=== PATIENT | male | born 1960 | race Caucasian/White ===

== ENCOUNTER 2019-07-20 14:14 | Emergency (ER) | payer BC ==
[2019-07-20] MEDS ORDERED: Sodium Chloride 0.9% 10 ML Syringe FLUSH PRN (14:17)
[2019-07-20] MEDS ORDERED: Aspirin 81 MG Tab.Chew PO ONE (14:22)
--- NOTE | 2019-07-20 14:29 | EDM.PDOC ---
ED HPI GENERAL MEDICAL PROBLEM - General Chief Complaint: Chest Pain Stated Complaint: CHEST PAIN Time Seen by Provider: 07/20/19 14:15 Source of Information: Reports: Patient, Provider, RN History Limitations: Reports: Other (no old records) - History of Present Illness INITIAL COMMENTS - FREE TEXT/NARRATIVE: 58 yo male here with onset this morning about 0530h of chest pain. Pain fairly constant. Taking a deep breath sometimes causes a bit of sharp pain in the chest as well. No recent calf pain. Mild SOB. No diaphoresis. Drives often over 12 hrs per day. No pHx of CAD or PE, does have a hx of AODM and HTN. Was initially seen in the clinic today for this and a had a normal EKG, was subsequently referred to the ER for further evaluation/tx. Onset: Today Onset Date: 07/20/19 Onset Time: 05:30 Duration: Hour(s):, Constant Location: Reports: Chest Quality: Reports: Pressure Severity: Moderate Improves with: Reports: None Worsens with: Reports: None Context: Reports: Other (See HPI) Associated Symptoms: Reports: Chest Pain, Shortness of Breath (mild). Denies: Cough, Diaphoresis, Fever/Chills, Headaches, Nausea/Vomiting, Rash, Seizure, Syncope Treatments [employer] HAND: Reports: Other (see below) (none) Left Middle Chest Pain Score (Numeric/FACES): 7 - Related Data Allergies Allergy/AdvReac Type Severity Reaction Status Date / Time No Known Allergies Allergy Verified 07/20/19 14:22 Home Meds: Home Meds Atenolol 100 mg PO DAILY 07/20/19 [History] Dulaglutide [Trulicity] 1.5 mg SQ WEEKLY 07/20/19 [History] atorvaSTATin [Lipitor] 20 mg PO BEDTIME 07/20/19 [History] glyBURIDE [Glyburide] 10 mg PO BID 07/20/19 [History] metFORMIN [Glucophage] 1,000 mg PO BIDMEALS 07/20/19 [History] oxyCODONE HCl/Acetaminophen [Endocet 10-325 mg Tablet] 1 - 2 each PO Q6H PRN [History] ED ROS GENERAL - Review of Systems Review Of Systems: See Below Constitutional: Reports: No Symptoms HEENT: Reports: No Symptoms Respiratory: Reports: Shortness of Breath (mild). Denies: Wheezing, Pleuritic Chest Pain, Cough, Sputum, Hemoptysis Cardiovascular: Reports: Chest Pain, Dyspnea on Exertion. Denies: Claudication , Edema, Lightheadedness, Orthopnea, Palpitations, PND, Syncope GI/Abdominal: Reports: No Symptoms : Reports: No Symptoms Musculoskeletal: Reports: No Symptoms Skin: Reports: No Symptoms Neurological: Reports: No Symptoms Psychiatric: Reports: No Symptoms ED EXAM, GENERAL - Physical Exam Exam: See Below Exam Limited By: No Limitations General Appearance: Alert, WD/WN, No Apparent Distress Eye Exam: Bilateral Eye: Normal Inspection Ears: Normal External Exam, Normal Canal, Hearing Grossly Normal, Normal TMs Ear Exam: Bilateral Ear: Auricle Normal, Canal Normal, TM normal Nose: Normal Inspection, No Blood Throat/Mouth: Normal Inspection, Normal Lips, Normal Oropharynx, Normal Voice, No Airway Compromise Head: Atraumatic, Normocephalic Neck: Normal Inspection Respiratory/Chest: No Respiratory Distress, Lungs Clear, Normal Breath Sounds, No Accessory Muscle Use, Chest Non-Tender Cardiovascular: Regular Rate, Rhythm, No Edema Peripheral Pulses: 0: Brachial (L) GI/Abdominal: Normal Bowel Sounds, Soft, Non-Tender Back Exam: Normal Inspection. No: CVA Tenderness (R), CVA Tenderness (L) Extremities: Normal Inspection, Normal Range of Motion, Non-Tender, No Pedal Edema Neurological: Alert, Oriented, CN II-XII Intact, Normal Cognition, No Motor/ Sensory Deficits Psychiatric: Normal Affect, Normal Mood Skin Exam: Warm, Dry, Intact, Normal Color, No Rash EKG INTERPRETATION EKG Date: 07/20/19 Time: 13:10 Rhythm: NSR Rate (Beats/Min): 89 [place]: Normal P-Wave: Present QRS: Normal ST-T: Normal QT: Normal Comparison: NA - No Prior EKG EKG Interpretation Comments: PAC's Course - Vital Signs Text/Narrative:: No change in his sx's with ambulation in the ER. Last Recorded V/S: Last Vital Signs Temp 36.2 C 07/20/19 14:30 Pulse 89 07/20/19 14:30 Resp 16 07/20/19 14:30 BP 165/96 H 07/20/19 14:30 Pulse Ox 99 07/20/19 14:30 - Orders/Labs/Meds Orders: Active Orders 24 hr Category Date Time Status Cardiac Monitoring [RC] .As Directed Care 07/20/19 14:17 Active Sodium Chloride 0.9% [Saline Flush] Med 07/20/19 14:17 Active 10 ml FLUSH ASDIRECTED PRN Saline Lock Insert [OM.PC] Routine Oth 07/20/19 14:17 Ordered Medication Orders Sodium Chloride (Saline Flush) 10 ml FLUSH ASDIRECTED PRN PRN Reason: Keep Vein Open Last Admin: 07/20/19 14:33 Dose: 10 ml Labs: Laboratory Tests 07/20/19 07/20/19 07/20/19 Range/Units 14:20 14:20 14:20 WBC 5.7 (4.5-11.0) K/uL RBC 5.39 (4.30-5.90) M/uL Hgb 15.7 H (12.0-15.0) g/dL Hct 45.8 (40.0-54.0) % MCV 85 (80-98) fL MCH 29 (27-31) pg MCHC 34 (32-36) % Plt Count 169 (150-400) K/uL D-Dimer, Quantitative 588 H (0.0-400.0) ng/mL Sodium 138 L (140-148) mmol/L Potassium 3.8 (3.6-5.2) mmol/L Chloride 101 (100-108) mmol/L Carbon Dioxide 29 (21-32) mmol/L Anion Gap 11.8 (5.0-14.0) mmol/L BUN 12 (7-18) mg/dL Creatinine 0.9 (0.8-1.3) mg/dL Est Cr Clr Drug Dosing 98.20 mL/min Estimated GFR (MDRD) > 60 (>60) Glucose 185 H (74-106) mg/dL Calcium 9.3 (8.5-10.1) mg/dL Troponin I < 0.017 (0.000-0.056) ng/mL Meds: Medications Generic Name Dose Route Start Last Admin Trade Name Freq PRN Reason Stop Dose Admin Sodium Chloride 10 ml 07/20/19 14:17 07/20/19 14:33 Saline Flush FLUSH 10 ml ASDIRECTED PRN Administration Keep Vein Open Discontinued Medications Generic Name Dose Route Start Last Admin Trade Name Freq PRN Reason Stop Dose Admin Aspirin 324 mg 07/20/19 14:22 07/20/19 14:32 Aspirin PO 07/20/19 14:23 324 mg ONETIME ONE Administration Lactated Ringer's 1,000 mls @ 1,000 mls/hr 07/20/19 15:06 07/20/19 15:37 Ringers, Lactated IV 07/20/19 16:05 1,000 mls/hr BOLUS ONE Administration Sodium Chloride 100 mls @ 3.5 mls/sec 07/20/19 15:22 07/20/19 15:30 Normal Saline IV 07/20/19 15:23 3.5 mls/sec ONETIME ONE Administration Iopamidol 100 ml 07/20/19 15:30 07/20/19 15:30 Isovue-370 (76%) IV 07/20/19 15:31 100 ml . DIRECTED ELDER Administration Ketorolac Tromethamine 30 mg 07/20/19 16:40 Toradol IVPUSH 07/20/19 16:41 ONETIME ONE Sodium Chloride 10 ml 07/20/19 15:22 07/20/19 15:30 Saline Flush FLUSH 07/20/19 15:23 10 ml ONETIME ONE Administration - Radiology Interpretation Free Text/Narrative:: CTA chest-neg CT Results Date: 07/20/19 Departure - Departure Time of Disposition: 16:55 Disposition: Home, Self-Care 01 Condition: Fair Clinical Impression: Nonspecific chest pain Referrals: Kvng Martinez MD [Primary Care Provider] - Forms: ED Department Discharge Additional Instructions: Take ibuprofen 400 mg every 6 hrs with food starting after 11 pm tonight. Recheck with your doctor if sx's persist. Return if worse. - My Orders Last 24 Hours: My Active Orders 07/20/19 14:17 Cardiac Monitoring [RC] .As Directed Sodium Chloride 0.9% [Saline Flush] 10 ml FLUSH ASDIRECTED PRN Saline Lock Insert [OM.PC] Routine - Assessment/Plan Last 24 Hours: My Active Orders 07/20/19 14:17 Cardiac Monitoring [RC] .As Directed Sodium Chloride 0.9% [Saline Flush] 10 ml FLUSH ASDIRECTED PRN Saline Lock Insert [OM.PC] Routine
[2019-07-20] MEDS ORDERED: Lactated Ringers 1,000 ML IV ONE (15:06)
[2019-07-20] MEDS ORDERED: Sodium Chloride 0.9% 100 ML IV ONE (15:22)
[2019-07-20] MEDS ORDERED: Sodium Chloride 0.9% 10 ML Syringe FLUSH ONE (15:22)
[2019-07-20] MEDS ORDERED: Iopamidol 755 Mg/ML 100 ML Bottle IV SCH (15:30)
--- NOTE | 2019-07-20 16:31 | CRLCT ---
INDICATION: Chest pain, shortness of breath, elevated D-dimer, normal troponin COMPARISON: none TECHNIQUE: Contrast enhanced axial CT imaging through the chest, optimized for assessment of the pulmonary arterial tree. 100 cc Isovue 370 contrast agent was administered intravenously. Sagittal and coronal reconstructions are provided. FINDINGS: There is adequate opacification of the pulmonary arterial tree, without evidence of thromboembolism.There is normal caliber of the main pulmonary artery. The heart is normal size. There is no pericardial effusion. Coronary artery disease is present. There is normal caliber of the thoracic aorta with calcified atherosclerotic plaque at the aortic arch and descending aorta. There is no mediastinal lymphadenopathy. Calcified nonenlarged lymph nodes in the right pulmonary hilum are consistent with sequelae of remote granulomatous disease. There is a 5 mm calcified granuloma in the right lower lobe. There is no pulmonary consolidation, vascular congestion, pleural effusion, or pneumothorax. The tracheobronchial tree is unremarkable. The included osseous structures are unremarkable. No significant abnormality is demonstrated in the visualized upper abdomen. IMPRESSION: No evidence of pulmonary thromboembolism. No acute process demonstrated in the chest. Please note that all CT scans at this facility use dose modulation, iterative reconstruction, and/or weight-based dosing when appropriate to reduce radiation dose to as low as reasonably achievable. Dictated by Page Luna MD @ Jul 20 2019 4:29PM Signed by Dr. Page Luna @ Jul 20 2019 4:29PM
[2019-07-20] MEDS ORDERED: Ketorolac 30 MG/ML SDV IVPUSH ONE (16:40)
== END 2019-07-20 16:58 | disposition home or self-care (01) ==
LOC: JP.ED 14:14
DX: R07.9 Chest pain, unspecified (principal); Z79.899 Other long term (current) drug therapy
CPT/HCPCS: 36415; 71275; 80048; 84484; 85027; 85379; 96361; 96374; 99285; A9270; J1885; J7030; J7120; Q9967

== ENCOUNTER 2021-03-11 18:07 | Observation (INO) | payer BC ==
[2021-03-11] MEDS ORDERED: Sodium Chloride 0.9% 10 ML Syringe FLUSH PRN (18:18)
[2021-03-11] MEDS ORDERED: Dextrose 5%-0.45% NaCl 1,000 ML IV SCH ×2 (18:30→21:16)
--- NOTE | 2021-03-11 19:01 | EDM.PDOC ---
ED HPI GENERAL MEDICAL PROBLEM - General Chief Complaint: General Stated Complaint: MEDICAL [facility]IA [facility] Time Seen by Provider: 03/11/21 18:16 Source of Information: Reports: Patient, EMS History Limitations: Reports: No Limitations - History of Present Illness INITIAL COMMENTS - FREE TEXT/NARRATIVE: Balwinder is a 60-year-old male presenting to the ED via [facility] after being found unresponsive by his . Patient has a history of diabetes and was recently started on NPH 70/30 as well as oral glyburide. The patient was diagnosed on 02/14/2021 with COVID-19 by his provider in the [facility]. He did not receive Bamlamivimab monoclonal therapy despite being high risk with the diabetes. He had the onset of the typical Covid symptoms including headache, shortness of breath, diminished appetite, body aches, nausea, and decreased concentration (brain fog). Over the last several days he has not taken much in for oral intake and he has not eaten in the last 2 days. Despite this, he took 80 units of his NPH this morning and then took a nap this afternoon. His went to awaken him from his nap and he was unresponsive. She in turn called EMS and when they arrived they did a glucometer he reading which read "low". The patient had an IV initiated and was given 10% dextrose 50 g IV push. After a minute they rechecked his blood glucose and was only 58 mg/dL so he was given another 10% dextrose 50 g ampule IV push which wrote raised his blood glucose to 91. The patient reports that today he ate 3 pieces of watermelon and has not had much in the way of fluids. He is alert and oriented at this time. He has no neurologic symptoms other than his Covid related brain fog. - Related Data Allergies Allergy/AdvReac Type Severity Reaction Status Date / Time No Known Allergies Allergy Verified 03/11/21 18:14 Home Meds: Home Meds atenoloL [Atenolol] 100 mg PO DAILY 07/20/19 [History] atorvaSTATin [Lipitor] 20 mg PO BEDTIME 07/20/19 [History] glyBURIDE [Glyburide] 10 mg PO BID 07/20/19 [History] metFORMIN [Glucophage] 1,000 mg PO BIDMEALS 07/20/19 [History] oxyCODONE HCl/Acetaminophen [Endocet 10-325 mg Tablet] 1 - 2 each PO Q6H PRN 07/20/19 [History] Insulin NPH Hum/Reg Insulin Hm [Humulin 70/30 Kwikpen] 1 injection SUBCUT ASDIRECTED 03/11/21 [History] Past Medical History HEENT History: Reports: Impaired Vision Cardiovascular History: Reports: High Cholesterol, Hypertension Endocrine/Metabolic History: Reports: Diabetes, Type II - Infectious Disease History Infectious Disease History: Reports: Chicken Pox Social & Family History - Tobacco Use Tobacco Use Status *Q: Never Tobacco User - Caffeine Use Caffeine Use: Reports: None ED ROS GENERAL - Review of Systems Review Of Systems: See Below Constitutional: Reports: Malaise, Fatigue, Diaphoresis, Decreased Appetite HEENT: Reports: No Symptoms Respiratory: Reports: Shortness of Breath, Cough Cardiovascular: Reports: No Symptoms Endocrine: Reports: Low Glucose GI/Abdominal: Reports: Nausea. Denies: Vomiting : Reports: No Symptoms Musculoskeletal: Reports: Muscle Pain Skin: Reports: No Symptoms Neurological: Reports: Headache, Tremors ( noted then when he was unresponsive that he was shaking) Psychiatric: Reports: No Symptoms Hematologic/Lymphatic: Reports: No Symptoms Immunologic: Reports: No Symptoms ED EXAM, GENERAL - Physical Exam Exam: See Below Exam Limited By: No Limitations General Appearance: Alert, Anxious, Lethargic Eye Exam: Bilateral Eye: EOMI, PERRL Throat/Mouth: Normal Inspection, Normal Oropharynx, Normal Voice, No Airway Compromise Head: Atraumatic, Normocephalic Neck: Normal Inspection, Supple, Non-Tender Respiratory/Chest: No Respiratory Distress, Lungs Clear, Normal Breath Sounds Cardiovascular: Normal Peripheral Pulses, Regular Rate, Rhythm, No Murmur Peripheral Pulses: 2+: Radial (L), Radial (R), Posterior Tibial (L), Posterior Tibial (R) GI/Abdominal: Normal Bowel Sounds, Soft, Non-Tender Back Exam: Normal Inspection Extremities: Normal Inspection, Normal Range of Motion Neurological: Alert, Oriented, Normal Cognition, No Motor/Sensory Deficits Psychiatric: Normal Affect, Normal Mood Skin Exam: Warm, Dry, Diaphoretic Course - Vital Signs Last Recorded V/S: Last Vital Signs Temp 36.0 C L 03/11/21 18:28 Pulse 72 03/11/21 18:28 Resp 14 03/11/21 18:28 BP Pulse Ox 99 03/11/21 18:28 - Orders/Labs/Meds Orders: Active Orders 24 hr Category Date Time Status UA W/MICROSCOPIC [URIN] Stat Lab 03/11/21 18:18 Ordered Dextrose 5%-0.45% NaCl [Dextrose 5%-1/2 NS] 1,000 ml Med 03/11/21 18:30 Active IV ASDIRECTED Sodium Chloride 0.9% [Saline Flush] Med 03/11/21 18:18 Active 10 ml FLUSH ASDIRECTED PRN Saline Lock Insert [OM.PC] Routine Oth 03/11/21 18:18 Ordered Medication Orders Dextrose/Sodium Chloride (Dextrose 5%-1/2 Ns) 1,000 mls @ 150 mls/hr IV ASDIRECTED ELDER Last Admin: 03/11/21 18:29 Dose: 150 mls/hr Documented by: KRISTIN Sodium Chloride (Sodium Chloride 0.9% 10 Ml Syringe) 10 ml FLUSH ASDIRECTED PRN PRN Reason: Keep Vein Open Labs: Laboratory Tests 03/11/21 03/11/21 03/11/21 Range/Units 18:40 18:40 18:40 WBC 9.8 (4.5-11.0) K/uL RBC 5.03 (4.30-5.90) M/uL Hgb 14.0 (12.0-15.0) g/dL Hct 42.3 (40.0-54.0) % MCV 84 (80-98) fL MCH 28 (27-31) pg MCHC 33 (32-36) % Plt Count 259 (150-400) K/uL Neut % (Auto) 79.9 H (36-66) % Lymph % (Auto) 11.5 L (24-44) % Dolores % (Auto) 7.6 H (2-6) % Eos % (Auto) 0.7 L (2-4) % Baso % (Auto) 0.3 (0-1) % ABG Hemoglobin 14.4 (13.5-18.0) g/dL ABG Oxyhemoglobin 52.8 % ABG Carboxyhemoglobin 1.9 H (0.0-1.6) % ABG Methemoglobin 0.9 % VBG pH 7.373 (7.350-7.450) VBG pCO2 45.6 mm/Hg VBG pO2 30.8 mm/Hg VBG HCO3 25.9 mmol/L VBG Total CO2 23.2 mmol/L VBG O2 Saturation 54.3 VBG O2 Content 10.7 %vol VBG Base Excess 0.8 mm/L O2 Delivery Device Room air Sodium 141 (140-148) mmol/L Potassium 4.2 (3.6-5.2) mmol/L Chloride 103 (100-108) mmol/L Carbon Dioxide 27 (21-32) mmol/L Anion Gap 11.0 (5.0-14.0) mmol/L BUN 16 (7-18) mg/dL Creatinine 1.1 (0.8-1.3) mg/dL Est Cr Clr Drug Dosing 85.35 mL/min Estimated GFR (MDRD) > 60 (>60) Glucose 108 H (74-106) mg/dL Calcium 8.9 (8.5-10.1) mg/dL Total Bilirubin 0.3 (0.2-1.0) mg/dL AST 34 (15-37) U/L ALT 54 (12-78) U/L Alkaline Phosphatase 85 (46-116) U/L C-Reactive Protein 0.69 H (0.0-0.3) mg/dL Total Protein 6.9 (6.4-8.2) g/dL Albumin 3.3 L (3.4-5.0) g/dL Globulin 3.6 H (2.3-3.5) g/dL Albumin/Globulin Ratio 0.9 L (1.2-2.2) Lipase 135 (73-393) U/L Ketones (NEGATIVE) 03/11/21 Range/Units 18:40 WBC (4.5-11.0) K/uL RBC (4.30-5.90) M/uL Hgb (12.0-15.0) g/dL Hct (40.0-54.0) % MCV (80-98) fL MCH (27-31) pg MCHC (32-36) % Plt Count (150-400) K/uL Neut % (Auto) (36-66) % Lymph % (Auto) (24-44) % Dolores % (Auto) (2-6) % Eos % (Auto) (2-4) % Baso % (Auto) (0-1) % ABG Hemoglobin (13.5-18.0) g/dL ABG Oxyhemoglobin % ABG Carboxyhemoglobin (0.0-1.6) % ABG Methemoglobin % VBG pH (7.350-7.450) VBG pCO2 mm/Hg VBG pO2 mm/Hg VBG HCO3 mmol/L VBG Total CO2 mmol/L VBG O2 Saturation VBG O2 Content %vol VBG Base Excess mm/L O2 Delivery Device Sodium (140-148) mmol/L Potassium (3.6-5.2) mmol/L Chloride (100-108) mmol/L Carbon Dioxide (21-32) mmol/L Anion Gap (5.0-14.0) mmol/L BUN (7-18) mg/dL Creatinine (0.8-1.3) mg/dL Est Cr Clr Drug Dosing mL/min Estimated GFR (MDRD) (>60) Glucose (74-106) mg/dL Calcium (8.5-10.1) mg/dL Total Bilirubin (0.2-1.0) mg/dL AST (15-37) U/L ALT (12-78) U/L Alkaline Phosphatase (46-116) U/L C-Reactive Protein (0.0-0.3) mg/dL Total Protein (6.4-8.2) g/dL Albumin (3.4-5.0) g/dL Globulin (2.3-3.5) g/dL Albumin/Globulin Ratio (1.2-2.2) Lipase (73-393) U/L Ketones Negative (NEGATIVE) Meds: Medications Generic Name Dose Route Start Last Admin Trade Name Freq PRN Reason Stop Dose Admin Dextrose/Sodium Chloride 1,000 mls @ 150 mls/hr 03/11/21 18:30 03/11/21 18:29 Dextrose 5%-1/2 Ns IV 150 mls/hr ASDIRECTED ELDER Administration Sodium Chloride 10 ml 03/11/21 18:18 Sodium Chloride 0.9% 10 Ml Syringe FLUSH ASDIRECTED PRN Keep Vein Open - Re-Assessments/Exams Free Text/Narrative Re-Assessment/Exam: 03/11/21 19:30 reviewed the patient's labs showing a hemoglobin of 14.0 with a hematocrit of 42.3. He has a normal leukocyte count at 9.8. His comprehensive metabolic panel is unremarkable with a glucose of 108. His creatinine is 1.1 with a BUN of 16. A venous blood gas was obtained showing a pH of 7.37, PCO2 of 45.6 with a PO2 of 30.8 and a bicarb of 26. Serum ketones are negative. My co ncern is the patient took a very large dose of 7030 NPH (80 units) and is already had significant hypoglycemia. This is in the face of not eating or drinking much today and I am worried about having recurrence of hypoglycemia so I am recommending an observation admission for close observation of his blood glucose and management of hypoglycemia overnight. The patient is a Loreto johnson being 28 days out from his infection and no longer requires isolation. I discussed the case with Jennifer Hwang who will arrange for the patient's admission. Departure - Departure Time of Disposition: 19:32 Disposition: Refer to Observation Clinical Impression: SY johnson, Hypoglycemia due to insulin, Type 2 diabetes mellitus with insulin therapy - Discharge Information Referrals: PCP,None [Primary Care Provider] - Forms: ED Department Discharge Sepsis Event Note (ED) - Evaluation Sepsis Screening Result: No Definite Risk - Focused Exam Vital Signs: Vital Signs Temp Pulse Resp Pulse Ox 03/11/21 18:28 36.0 C L 72 14 99 - Problem List & Annotations (1) SY johnson SNOMED Code(s): 1743369692 Code(s): B94.8 - SEQUELAE OF OTH INFECTIOUS AND PARASITIC DISEASES Status: Acute Priority: Medium Current Visit: Yes (2) Hypoglycemia due to insulin SNOMED Code(s): 193181527 Code(s): E16.0 - DRUG-INDUCED HYPOGLYCEMIA WITHOUT COMA; T38.3X5A - ADVERSE EFFECT OF INSULIN AND ORAL HYPOGLYCEMIC DRUGS, INIT Status: Acute Priority: High Current Visit: Yes (3) Type 2 diabetes mellitus with insulin therapy SNOMED Code(s): 98643660 Code(s): E11.9 - TYPE 2 DIABETES MELLITUS WITHOUT COMPLICATIONS; Z79.4 - SENIOR LIVING (CURRENT) USE OF INSULIN Status: Chronic Priority: High Current Visit: Yes - Problem List Review Problem List Initiated/Reviewed/Updated: Yes - My Orders Last 24 Hours: My Active Orders 03/11/21 18:18 UA W/MICROSCOPIC [URIN] Stat Sodium Chloride 0.9% [Saline Flush] 10 ml FLUSH ASDIRECTED PRN Saline Lock Insert [OM.PC] Routine 03/11/21 18:30 Dextrose 5%-0.45% NaCl [Dextrose 5%-1/2 NS] 1,000 ml IV ASDIRECTED - Assessment/Plan Last 24 Hours: My Active Orders 03/11/21 18:18 UA W/MICROSCOPIC [URIN] Stat Sodium Chloride 0.9% [Saline Flush] 10 ml FLUSH ASDIRECTED PRN Saline Lock Insert [OM.PC] Routine 03/11/21 18:30 Dextrose 5%-0.45% NaCl [Dextrose 5%-1/2 NS] 1,000 ml IV ASDIRECTED
--- NOTE | 2021-03-11 20:43 | PCM.HP.2 ---
H&P History of Present Illness - General Date of Service: 03/11/21 Admit Problem/Dx: Admission Diagnosis/Problem Admission Diagnosis/Problem Hypoglycemia associated with type 2 diabetes mellitus Source of Information: Patient, Provider, RN History Limitations: Reports: No Limitations - History of Present Illness Initial Comments - Free Text/Narative: Chief complaint: low blood sugarJesse Britt is a 60-year-old male presenting to the ED via [facility] after being found unresponsive by his . Patient has a history of diabetes and was recently started on NPH 70/30 as well as oral glyburide. The patient was diagnosed on 02/14/2021 with COVID-19 by his provider in the [facility]. He did not receive Bamlamivimab monoclonal therapy despite being high risk with the diabetes. He had the onset of the typical Covid symptoms including headache, shortness of breath, diminished appetite (25 pound wt loss), body aches, nausea, and decreased concentration (brain fog). Over the last several days he has not taken much in for oral intake and he has not eaten in the last 3 days. Despite this, he took 80 units of his NPH this morning and then took a nap this afternoon. His went to awaken him from his nap and he was unresponsive. She in turn called EMS and when they arrived they did a glucometer he reading which read "low". The patient had an IV initiated and was given 10% dextrose 50 g IV push. After a minute they rechecked his blood glucose and was only 58 mg/dL so he was given another 10% dextrose 50 g ampule IV push which wrote raised his blood glucose to 91. The patient reports that today he ate 3 pieces of watermelon and has not had much in the way of fluids. He is alert and oriented at this time. He has no neurologic symptoms other than his Covid related brain fog. Onset of Symptoms: Reports: Today Symptom Onset Date: 03/11/21 Duration of Symptoms: Reports: Hour(s): Location: Reports: Generalized Severity: Severe Improves with: Reports: Medication Worsens with: Reports: None Context: Reports: Other (not eating, 25 pound wt loss since Covid on 02/15/2021.) Associated Symptoms: Reports: Fever/Chills, Loss of Appetite, Nausea/Vomiting, Shortness of Breath, Weakness - Related Data Allergies/Adverse Reactions: Allergies Allergy/AdvReac Type Severity Reaction Status Date / Time No Known Allergies Allergy Verified 03/11/21 18:14 Home Medications: Home Meds atenoloL [Atenolol] 100 mg PO DAILY 07/20/19 [History] atorvaSTATin [Lipitor] 20 mg PO BEDTIME 07/20/19 [History] glyBURIDE [Glyburide] 10 mg PO BID 07/20/19 [History] metFORMIN [Glucophage] 1,000 mg PO BIDMEALS 07/20/19 [History] oxyCODONE HCl/Acetaminophen [Endocet 10-325 mg Tablet] 1 - 2 each PO Q6H PRN 07/20/19 [History] Insulin NPH Hum/Reg Insulin Hm [Humulin 70/30 Kwikpen] 1 injection SUBCUT ASDIRECTED 03/11/21 [History] Past Medical History HEENT History: Reports: Impaired Vision Cardiovascular History: Reports: High Cholesterol, Hypertension Endocrine/Metabolic History: Reports: Diabetes, Type II - Infectious Disease History Infectious Disease History: Reports: Chicken Pox Social & Family History - Tobacco Use Tobacco Use Status *Q: Never Tobacco User - Caffeine Use Caffeine Use: Reports: None - Living Situation & Occupation Living situation: Reports: 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.) H&P Review of Systems - Review of Systems: Review Of Systems: See Below General: Reports: Fever, Chills, Malaise, Weakness, Fatigue, Decreased Appetite (last meal 3 days ago), Weight Loss (25 pounds since 02/15/2021) HEENT: Reports: No Symptoms Pulmonary: Reports: Shortness of Breath Cardiovascular: Reports: No Symptoms Gastrointestinal: Reports: Anorexia, Decreased Appetite, Nausea Genitourinary: Reports: No Symptoms Musculoskeletal: Reports: Shoulder Pain (chronic), Back Pain (chronic) Skin: Reports: Wound (multi healing wounds from work, none with acute infection.) Neurological: Reports: No Symptoms Hematologic/Lymphatic: Reports: No Symptoms Immunologic: Reports: No Symptoms Exam - Exam Exam: See Below - Vital Signs Vital Signs: Last Vital Signs Temp 96.8 F L 03/11/21 18:28 Pulse 72 03/11/21 18:28 Resp 14 03/11/21 18:28 BP Pulse Ox 99 03/11/21 18:28 Weight: 245 lb - Exam Quality Assessment: DVT Prophylaxis General: Alert, Oriented, Cooperative, Other (neat and well groomed, pleasant. ) HEENT: PERRLA, Hearing Intact, Mucosa Moist & [place], Nares Patent, Normal Nasal Septum, Posterior Pharynx Clear, Conjunctiva Clear, EOMI, EACs Clear, TMs Clear Neck: Supple, Trachea Midline, 2 Lungs: Clear to Auscultation, Normal Respiratory Effort Cardiovascular: Regular Rate, Regular Rhythm GI/Abdominal Exam: Normal Bowel Sounds, Soft, Non-Tender, No Organomegaly, No Distention, No Abnormal Bruit, No Mass, Pelvis Stable (Male) Exam: Deferred Rectal (Males) Exam: Deferred Back Exam: Normal Inspection, Full Range of Motion, Paraspinal Tenderness Peripheral Pulses: 2+: Radial (L), Radial (R), Dorsalis Pedis (L), Dorsalis Pedis (R) Skin: Wound (dry healing abrasion and cut to hands and forearm. without signs of infection) Neurological: Cranial Nerves Intact, Strength Equal Bilateral Neuro Extensive - Mental Status: Alert, Oriented x3, Normal Mood/Affect, Normal Cognition Neuro Extensive - Motor, Sensory, Reflexes: CN II-XII Intact, Normal Gait, Normal Reflexes Psychiatric: Alert, Normal Affect, Normal Mood - Patient Data Lab Results Last 24 hrs: Laboratory Results - last 24 hr 03/11/21 03/11/21 03/11/21 Range/Units 18:40 18:40 18:40 WBC 9.8 (4.5-11.0) K/uL RBC 5.03 (4.30-5.90) M/uL Hgb 14.0 (12.0-15.0) g/dL Hct 42.3 (40.0-54.0) % MCV 84 (80-98) fL MCH 28 (27-31) pg MCHC 33 (32-36) % Plt Count 259 (150-400) K/uL Neut % (Auto) 79.9 H (36-66) % Lymph % (Auto) 11.5 L (24-44) % [place] % (Auto) 7.6 H (2-6) % Eos % (Auto) 0.7 L (2-4) % Baso % (Auto) 0.3 (0-1) % ABG Hemoglobin 14.4 (13.5-18.0) g/dL ABG Oxyhemoglobin 52.8 % ABG Carboxyhemoglobin 1.9 H (0.0-1.6) % ABG Methemoglobin 0.9 % VBG pH 7.373 (7.350-7.450) VBG pCO2 45.6 mm/Hg VBG pO2 30.8 mm/Hg VBG HCO3 25.9 mmol/L VBG Total CO2 23.2 mmol/L VBG O2 Saturation 54.3 VBG O2 Content 10.7 %vol VBG Base Excess 0.8 mm/L O2 Delivery Device Room air Sodium 141 (140-148) mmol/L Potassium 4.2 (3.6-5.2) mmol/L Chloride 103 (100-108) mmol/L Carbon Dioxide 27 (21-32) mmol/L Anion Gap 11.0 (5.0-14.0) mmol/L BUN 16 (7-18) mg/dL Creatinine 1.1 (0.8-1.3) mg/dL Est Cr Clr Drug Dosing 85.35 mL/min Estimated GFR (MDRD) > 60 (>60) Glucose 108 H (74-106) mg/dL Calcium 8.9 (8.5-10.1) mg/dL Total Bilirubin 0.3 (0.2-1.0) mg/dL AST 34 (15-37) U/L ALT 54 (12-78) U/L Alkaline Phosphatase 85 (46-116) U/L C-Reactive Protein 0.69 H (0.0-0.3) mg/dL Total Protein 6.9 (6.4-8.2) g/dL Albumin 3.3 L (3.4-5.0) g/dL Globulin 3.6 H (2.3-3.5) g/dL Albumin/Globulin Ratio 0.9 L (1.2-2.2) Lipase 135 (73-393) U/L Ketones (NEGATIVE) 03/11/21 Range/Units 18:40 WBC (4.5-11.0) K/uL RBC (4.30-5.90) M/uL Hgb (12.0-15.0) g/dL Hct (40.0-54.0) % MCV (80-98) fL MCH (27-31) pg MCHC (32-36) % Plt Count (150-400) K/uL Neut % (Auto) (36-66) % Lymph % (Auto) (24-44) % [place] % (Auto) (2-6) % Eos % (Auto) (2-4) % Baso % (Auto) (0-1) % ABG Hemoglobin (13.5-18.0) g/dL ABG Oxyhemoglobin % ABG Carboxyhemoglobin (0.0-1.6) % ABG Methemoglobin % VBG pH (7.350-7.450) VBG pCO2 mm/Hg VBG pO2 mm/Hg VBG HCO3 mmol/L VBG Total CO2 mmol/L VBG O2 Saturation VBG O2 Content %vol VBG Base Excess mm/L O2 Delivery Device Sodium (140-148) mmol/L Potassium (3.6-5.2) mmol/L Chloride (100-108) mmol/L Carbon Dioxide (21-32) mmol/L Anion Gap (5.0-14.0) mmol/L BUN (7-18) mg/dL Creatinine (0.8-1.3) mg/dL Est Cr Clr Drug Dosing mL/min Estimated GFR (MDRD) (>60) Glucose (74-106) mg/dL Calcium (8.5-10.1) mg/dL Total Bilirubin (0.2-1.0) mg/dL AST (15-37) U/L ALT (12-78) U/L Alkaline Phosphatase (46-116) U/L C-Reactive Protein (0.0-0.3) mg/dL Total Protein (6.4-8.2) g/dL Albumin (3.4-5.0) g/dL Globulin (2.3-3.5) g/dL Albumin/Globulin Ratio (1.2-2.2) Lipase (73-393) U/L Ketones Negative (NEGATIVE) Result Diagrams: 03/11/21 18:40 03/11/21 18:40 Sepsis Event Note - Evaluation Sepsis Screening Result: No Definite Risk - Focused Exam Vital Signs: Vital Signs Temp Pulse Resp Pulse Ox 03/11/21 18:28 96.8 F L 72 14 99 - Problem List (1) Hypoglycemia due to insulin SNOMED Code(s): 193536725 ICD Code: E16.0 - DRUG-INDUCED HYPOGLYCEMIA WITHOUT COMA; T38.3X5A - ADVERSE EFFECT OF INSULIN AND ORAL HYPOGLYCEMIC DRUGS, INIT Status: Acute Priority: High Current Visit: Yes (2) Type 2 diabetes mellitus with insulin therapy SNOMED Code(s): 20975593 ICD Code: E11.9 - TYPE 2 DIABETES MELLITUS WITHOUT COMPLICATIONS; Z79.4 - [employer] (CURRENT) USE OF INSULIN Status: Chronic Priority: High Current Visit: Yes (3) COVID-19 long hauler SNOMED Code(s): 1519865751 ICD Code: B94.8 - SEQUELAE OF OTH INFECTIOUS AND PARASITIC DISEASES Status: Acute Priority: Medium Current Visit: Yes (4) Hypertension SNOMED Code(s): 35182061 ICD Code: I10 - ESSENTIAL (PRIMARY) HYPERTENSION Status: Acute Priority: Low Current Visit: Yes Qualifiers: Hypertension type: essential hypertension Qualified Code(s): I10 - Essential (primary) hypertension Problem List Initiated/Reviewed/Updated: Yes Orders Last 24hrs: Active Orders 24 hr Category Date Time Status Patient Status Manage Transfer [TRANSFER] Routine ADT 03/11/21 20:24 Ordered UA W/MICROSCOPIC [URIN] Stat Lab 03/11/21 18:18 Ordered Dextrose 5%-0.45% NaCl [Dextrose 5%-1/2 NS] 1,000 ml Med 03/11/21 18:30 Active IV ASDIRECTED Sodium Chloride 0.9% [Saline Flush] Med 03/11/21 18:18 Active 10 ml FLUSH ASDIRECTED PRN Saline Lock Insert [OM.PC] Routine Oth 03/11/21 18:18 Ordered Resuscitation Status Routine Resus Stat 03/11/21 20:25 Ordered Medication Orders Dextrose/Sodium Chloride (Dextrose 5%-1/2 Ns) 1,000 mls @ 150 mls/hr IV ASDIRECTED LEDER Last Admin: 03/11/21 18:29 Dose: 150 mls/hr Documented by: KRISTIN Sodium Chloride (Sodium Chloride 0.9% 10 Ml Syringe) 10 ml FLUSH ASDIRECTED PRN PRN Reason: Keep Vein Open Assessment/Plan Comment:: Assessment/Plan Comment:: ASSESSMENT AND PLAN Mr. Baeza is a 60-year-old male presenting to the ED via [facility] after being found unresponsive by his . Patient has a history of diabetes and was recently started on NPH 70/30 as well as oral glyburide. The patient was diagnosed on 02/14/2021 with COVID-19 by his provider in the [facility]. He did not receive Bamlamivimab monoclonal therapy despite being high risk with the diabetes. He had the onset of the typical Covid symptoms including headache, shortness of breath, diminished appetite (25 pound wt loss), body aches, nausea, and decreased concentration (brain fog). Over the last several days he has not taken much in for oral intake and he has not eaten in the last 3 days. Despite this, he took 80 units of his NPH this morning and then took a nap this afternoon. His went to awaken him from his nap and he was unresponsive. She in turn called EMS and when they arrived they did a glucometer he reading which read "low". The patient had an IV initiated and was given 10% dextrose 50 g IV push. After a minute they rechecked his blood glucose and was only 58 mg/dL so he was given another 10% dextrose 50 g ampule IV push which wrote raised his blood glucose to 91. The patient reports that today he ate 3 pieces of watermelon and has not had much in the way of fluids. He is alert and oriented at this time. He has no neurologic symptoms other than his Covid related brain fog. ER Evaluation- labs showing a hemoglobin of 14.0 with a hematocrit of 42.3, normal leukocyte count at 9.8. comprehensive metabolic panel is unremarkable with a glucose of 108, creatinine is 1.1 with a BUN of 16. A venous blood gas pH of 7.37, PCO2 of 45.6 with a PO2 of 30.8 and a bicarb of 26. Serum ketones are negative. ER Doctor recommending an observation admission for close observation of his blood glucose and management of hypoglycemia overnight. Mr. Baeza agrees with plan of care. Hypoglycemia due to insulin therapy -hold Outpatient medication - Insulin NPH, Metformin, glyburide -IV fluids D5 1/2 NS at 125 ml/hr -blood glucose checks 4 times a day and at bedtime -call Hospitalist for any high or low blood glucose per protocol Diabetes type 2 with insulin therapy -hold diabetic medication tonight. reassess in am. -blood glucose 4 times a day Covid 19 dimitri hagisselle- symptoms 02/15/2021 with diagnosis 02/20/2021. Mr. Baeza continues to have fever, chills, shortness of breath, nausea, loss of appetite, weight loss of 25 pounds, last meal 3 days ago, taste and memory impairment. - 28 days since diagnosis and no longer requires isolation. -supportive care -anti nausea medication ordered -Tylenol for pain or fever Hypertension -continue Atenolol 100 mg daily MAINTENANCE ISSUES -DVT prophylaxis - Lovenox 40 mg subcut daily -GI prophylaxis - IV Protonix 40 mg daily -Lima catheter; not indicated -Nutrition- consistent carb diet -Non-smoker CODE STATUS-FULL ADMISSION STATUS-this patient will be admitted to observation status, expect no more than a one night hospital stay for evaluation and management of problems as outlined above. DISPOSITION-anticipate discharge to home after the hospital stay. PRIMARY CARE PROVIDER-Dr. Martinez, [facility] Hospitalist - Dr. Guzman Boles - Mortality Measure Prognosis:: Good
[2021-03-11] MEDS ORDERED: Docusate Sodium 100 MG Cap PO PRN (21:16)
[2021-03-11] MEDS ORDERED: Acetaminophen/oxyCODONE 325-10 MG Tab PO PRN (21:16)
[2021-03-11] MEDS ORDERED: Ondansetron 4 MG/2 ML SDV IV PRN (21:16)
[2021-03-11] MEDS ORDERED: Acetaminophen 325 MG Tab PO PRN (21:16)
[2021-03-11] MEDS ORDERED: Morphine 2 MG/ML SYRINGE IVPUSH PRN (21:16)
[2021-03-11] MEDS ORDERED: Albuterol 0.083% 2.5 MG/3 ML Neb Soln NEB PRN (21:16)
[2021-03-11] MEDS ORDERED: Pantoprazole 40 MG Vial IV SCH (21:16)
[2021-03-11] MEDS ORDERED: Ondansetron 4 MG Tab.DIS PO PRN (21:16)
[2021-03-11] MEDS ORDERED: LORazepam 2 MG/ML SDV IV PRN (21:16)
[2021-03-11] MEDS ORDERED: Enoxaparin 40 MG/0.4 ML Syringe SUBCUT SCH (21:16)
[2021-03-12] MEDS ORDERED: Pantoprazole 40 MG Vial IV SCH (07:30)
[2021-03-12] MEDS ORDERED: Atenolol 25 MG Tab PO SCH (09:00)
--- NOTE | 2021-03-12 10:19 | PCM.DCSUM1 ---
Discharge Summary - Hospital Course Brief History: 60-year-old male with history of insulin dependent diabetes mellitus who presented from home unresponsive with a blood sugar meter that was reading low. He was admitted for observation with persistent hypoglycemia noted in the emergency room. 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 His glucose meter at home read low. He did receive some dextrose in route to the hospital and had started to improve. His blood sugars did improve during the emergency room stay but did remain on the low side of normal. We elected to admit him for observation overnight. He was on dextrose containing IV fluids for a short while. The morning after admission he feels well. His blood sugar is now moderately elevated. We did review recent blood sugar trends and eating habits. This is an isolated low reading with infrequent difficulties noted in the past. Usually he is symptomatic but was sleeping during this episode of hypoglycemia. He reports that overall he has been very happy with his blood sugar control and does not think he needs to make any changes at this time. He does admit he has not been eating well since he had a Covid infection. We did discuss if he is not eating that he should reduce his insulin dose and he does report that if he is not going to eat and his blood sugar is on the lower side he will skip doses. He seems to have a good grasp of managing his diabetes at this time. He is going to contact his outreach educator tomorrow to discuss the situation. At this point I do not think we need to make any changes. He is stable and safe for discharge home at this time. - Patient Instructions Diet: Diabetic Diet Activity: As Tolerated Showering/Bathing: May Shower Other/Special Instructions: 1. You were in the hospital for observation after an episode of hypoglycemia. Your blood sugar has normalized overnight. At this time I do not recommend any changes to your medication regimen since you do not have regular difficulties with low blood sugars. I would encourage you to contact your outreach educator this week to discuss the episode and see if she has any recommendations. - Discharge Plan *PRESCRIPTION DRUG MONITORING PROGRAM REVIEWED*: Not Applicable *COPY OF PRESCRIPTION DRUG MONITORING REPORT IN PATIENT OSCAR: Not Applicable Home Medications: Home Meds atenoloL [Atenolol] 100 mg PO DAILY 07/20/19 [History] atorvaSTATin [Lipitor] 20 mg PO BEDTIME 07/20/19 [History] glyBURIDE [Glyburide] 10 mg PO BID 07/20/19 [History] metFORMIN [Glucophage] 1,000 mg PO BIDMEALS 07/20/19 [History] oxyCODONE HCl/Acetaminophen [Endocet 10-325 mg Tablet] 1 - 2 each PO Q6H PRN 07/20/19 [History] Insulin NPH Hum/Reg Insulin Hm [Humulin 70/30 Kwikpen] 1 injection SUBCUT ASDIRECTED 03/11/21 [History] Oxygen Therapy Mode: Room Air Patient Handouts: Preventing Hypoglycemia, Prediabetes Eating Plan Referrals: Mana Milton RN [Registered Nurse] - (f/u as needed if you continue to experience trouble with low blood sugars ) - Discharge Summary/Plan Comment DC Time >30 min.: No - Patient Data Vitals - Most Recent: Last Vital Signs Temp 35.7 C L 03/12/21 10:16 Pulse 69 03/12/21 10:16 Resp 18 03/12/21 10:16 BP 160/75 H 03/12/21 10:16 Pulse Ox 97 03/12/21 10:16 Weight - Most Recent: 113.001 kg I&O - Last 24 hours: Intake & Output 03/11/21 03/12/21 03/12/21 22:59 06:59 14:59 Intake Total 1360 240 Balance 1360 240 Lab Results - Last 24 hrs: Laboratory Results - last 24 hr 03/11/21 03/11/21 03/11/21 Range/Units 18:40 18:40 18:40 WBC 9.8 (4.5-11.0) K/uL RBC 5.03 (4.30-5.90) M/uL Hgb 14.0 (12.0-15.0) g/dL Hct 42.3 (40.0-54.0) % MCV 84 (80-98) fL MCH 28 (27-31) pg MCHC 33 (32-36) % Plt Count 259 (150-400) K/uL Neut % (Auto) 79.9 H (36-66) % Lymph % (Auto) 11.5 L (24-44) % [place] % (Auto) 7.6 H (2-6) % Eos % (Auto) 0.7 L (2-4) % Baso % (Auto) 0.3 (0-1) % ABG Hemoglobin 14.4 (13.5-18.0) g/dL ABG Oxyhemoglobin 52.8 % ABG Carboxyhemoglobin 1.9 H (0.0-1.6) % ABG Methemoglobin 0.9 % VBG pH 7.373 (7.350-7.450) VBG pCO2 45.6 mm/Hg VBG pO2 30.8 mm/Hg VBG HCO3 25.9 mmol/L VBG Total CO2 23.2 mmol/L VBG O2 Saturation 54.3 VBG O2 Content 10.7 %vol VBG Base Excess 0.8 mm/L O2 Delivery Device Room air Sodium 141 (140-148) mmol/L Potassium 4.2 (3.6-5.2) mmol/L Chloride 103 (100-108) mmol/L Carbon Dioxide 27 (21-32) mmol/L Anion Gap 11.0 (5.0-14.0) mmol/L BUN 16 (7-18) mg/dL Creatinine 1.1 (0.8-1.3) mg/dL Est Cr Clr Drug Dosing 85.35 mL/min Estimated GFR (MDRD) > 60 (>60) Glucose 108 H (74-106) mg/dL POC Glucose (74-106) mg/dL Calcium 8.9 (8.5-10.1) mg/dL Total Bilirubin 0.3 (0.2-1.0) mg/dL AST 34 (15-37) U/L ALT 54 (12-78) U/L Alkaline Phosphatase 85 (46-116) U/L C-Reactive Protein 0.69 H (0.0-0.3) mg/dL Total Protein 6.9 (6.4-8.2) g/dL Albumin 3.3 L (3.4-5.0) g/dL Globulin 3.6 H (2.3-3.5) g/dL Albumin/Globulin Ratio 0.9 L (1.2-2.2) Lipase 135 (73-393) U/L Urine Color (YELLOW) Urine Appearance (CLEAR) Urine pH (5.0-8.0) Ur Specific [place] (1.008-1.030) Urine Protein (NEGATIVE) mg/dL Urine Glucose (UA) (NEGATIVE) mg/dL Urine Ketones (NEGATIVE) mg/dL Urine Occult Blood (NEGATIVE) Urine Nitrite (NEGATIVE) Urine Bilirubin (NEGATIVE) Urine Urobilinogen (0.2-1.0) EU/dL Ur Leukocyte Esterase (NEGATIVE) Urine RBC (0-5) Urine WBC (0-5) Ur Epithelial Cells Amorphous Sediment Urine Bacteria Urine Mucus Ketones (NEGATIVE) 03/11/21 03/11/21 03/12/21 Range/Units 18:40 21:22 05:40 WBC 6.1 (4.5-11.0) K/uL RBC 4.85 (4.30-5.90) M/uL Hgb 13.5 (12.0-15.0) g/dL Hct 40.6 (40.0-54.0) % MCV 84 (80-98) fL MCH 28 (27-31) pg MCHC 33 (32-36) % Plt Count 243 (150-400) K/uL Neut % (Auto) 56.7 (36-66) % Lymph % (Auto) 30.5 (24-44) % [place] % (Auto) 9.5 H (2-6) % Eos % (Auto) 2.8 (2-4) % Baso % (Auto) 0.5 (0-1) % ABG Hemoglobin (13.5-18.0) g/dL ABG Oxyhemoglobin % ABG Carboxyhemoglobin (0.0-1.6) % ABG Methemoglobin % VBG pH (7.350-7.450) VBG pCO2 mm/Hg VBG pO2 mm/Hg VBG HCO3 mmol/L VBG Total CO2 mmol/L VBG O2 Saturation VBG O2 Content %vol VBG Base Excess mm/L O2 Delivery Device Sodium (140-148) mmol/L Potassium (3.6-5.2) mmol/L Chloride (100-108) mmol/L Carbon Dioxide (21-32) mmol/L Anion Gap (5.0-14.0) mmol/L BUN (7-18) mg/dL Creatinine (0.8-1.3) mg/dL Est Cr Clr Drug Dosing mL/min Estimated GFR (MDRD) (>60) Glucose (74-106) mg/dL POC Glucose (74-106) mg/dL Calcium (8.5-10.1) mg/dL Total Bilirubin (0.2-1.0) mg/dL AST (15-37) U/L ALT (12-78) U/L Alkaline Phosphatase (46-116) U/L C-Reactive Protein (0.0-0.3) mg/dL Total Protein (6.4-8.2) g/dL Albumin (3.4-5.0) g/dL Globulin (2.3-3.5) g/dL Albumin/Globulin Ratio (1.2-2.2) Lipase (73-393) U/L Urine Color Yellow (YELLOW) Urine Appearance Clear (CLEAR) Urine pH 7.0 (5.0-8.0) Ur Specific [place] 1.015 (1.008-1.030) Urine Protein Negative (NEGATIVE) mg/dL Urine Glucose (UA) Negative (NEGATIVE) mg/dL Urine Ketones Negative (NEGATIVE) mg/dL Urine Occult Blood Negative (NEGATIVE) Urine Nitrite Negative (NEGATIVE) Urine Bilirubin Negative (NEGATIVE) Urine Urobilinogen 1.0 (0.2-1.0) EU/dL Ur Leukocyte Esterase Negative (NEGATIVE) Urine RBC 0-5 (0-5) Urine WBC 0-5 (0-5) Ur Epithelial Cells Not seen Amorphous Sediment Not seen Urine Bacteria Not seen Urine Mucus Not seen Ketones Negative (NEGATIVE) 03/12/21 03/12/21 Range/Units 05:40 07:44 WBC (4.5-11.0) K/uL RBC (4.30-5.90) M/uL Hgb (12.0-15.0) g/dL Hct (40.0-54.0) % MCV (80-98) fL MCH (27-31) pg MCHC (32-36) % Plt Count (150-400) K/uL Neut % (Auto) (36-66) % Lymph % (Auto) (24-44) % [place] % (Auto) (2-6) % Eos % (Auto) (2-4) % Baso % (Auto) (0-1) % ABG Hemoglobin (13.5-18.0) g/dL ABG Oxyhemoglobin % ABG Carboxyhemoglobin (0.0-1.6) % ABG Methemoglobin % VBG pH (7.350-7.450) VBG pCO2 mm/Hg VBG pO2 mm/Hg VBG HCO3 mmol/L VBG Total CO2 mmol/L VBG O2 Saturation VBG O2 Content %vol VBG Base Excess mm/L O2 Delivery Device Sodium 140 (140-148) mmol/L Potassium 4.5 (3.6-5.2) mmol/L Chloride 104 (100-108) mmol/L Carbon Dioxide 26 (21-32) mmol/L Anion Gap 9.8 (5.0-14.0) mmol/L BUN 12 (7-18) mg/dL Creatinine 0.9 (0.8-1.3) mg/dL Est Cr Clr Drug Dosing 95.80 mL/min Estimated GFR (MDRD) > 60 (>60) Glucose 254 H (74-106) mg/dL POC Glucose 271 H (74-106) mg/dL Calcium 8.4 L (8.5-10.1) mg/dL Total Bilirubin (0.2-1.0) mg/dL AST (15-37) U/L ALT (12-78) U/L Alkaline Phosphatase (46-116) U/L C-Reactive Protein (0.0-0.3) mg/dL Total Protein (6.4-8.2) g/dL Albumin (3.4-5.0) g/dL Globulin (2.3-3.5) g/dL Albumin/Globulin Ratio (1.2-2.2) Lipase (73-393) U/L Urine Color (YELLOW) Urine Appearance (CLEAR) Urine pH (5.0-8.0) Ur Specific [place] (1.008-1.030) Urine Protein (NEGATIVE) mg/dL Urine Glucose (UA) (NEGATIVE) mg/dL Urine Ketones (NEGATIVE) mg/dL Urine Occult Blood (NEGATIVE) Urine Nitrite (NEGATIVE) Urine Bilirubin (NEGATIVE) Urine Urobilinogen (0.2-1.0) EU/dL Ur Leukocyte Esterase (NEGATIVE) Urine RBC (0-5) Urine WBC (0-5) Ur Epithelial Cells Amorphous Sediment Urine Bacteria Urine Mucus Ketones (NEGATIVE) Med Orders - Current: Current Medications Acetaminophen (Acetaminophen 325 Mg Tab) 650 mg PO Q4H PRN PRN Reason: Pain (Mild 1-3)/fever Albuterol (Albuterol 0.083% 2.5 Mg/3 Ml Neb Soln) 2.5 mg NEB Q4H PRN PRN Reason: Shortness Of Breath/wheezing Atenolol (Atenolol 25 Mg Tab) 100 mg PO DAILY [facility] Last Admin: 03/12/21 08:09 Dose: 100 mg Documented by: Docusate Sodium (Docusate Sodium 100 Mg Cap) 100 mg PO BID PRN PRN Reason: Constipation Enoxaparin Sodium (Enoxaparin 40 Mg/0.4 Ml Syringe) 40 mg SUBCUT BEDTIME [facility] Lorazepam (Lorazepam 2 Mg/Ml Sdv) 1 mg IV Q6H PRN PRN Reason: Anxiety Morphine Sulfate (Morphine 2 Mg/Ml Syringe) 2 mg IVPUSH Q2H PRN PRN Reason: Pain (severe 7-10) Ondansetron HCl (Ondansetron 4 Mg Tab.Dis) 4 mg PO Q6H PRN PRN Reason: Nausea able to take PO Ondansetron HCl (Ondansetron 4 Mg/2 Ml Sdv) 4 mg IV Q4H PRN PRN Reason: Nausea/Vomiting Oxycodone/Acetaminophen (Acetaminophen/Oxycodone 325-10 Mg Tab) 1 - 2 tab PO Q6H PRN PRN Reason: Pain Sodium Chloride (Sodium Chloride 0.9% 10 Ml Syringe) 10 ml FLUSH ASDIRECTED PRN PRN Reason: Keep Vein Open Discontinued Medications Enoxaparin Sodium (Enoxaparin 40 Mg/0.4 Ml Syringe) 40 mg SUBCUT DAILY [facility] Last Admin: 03/11/21 22:51 Dose: 40 mg Documented by: Dextrose/Sodium Chloride (Dextrose 5%-1/2 Ns) 1,000 mls @ 150 mls/hr IV ASDIRECTED [facility] Last Admin: 03/11/21 18:29 Dose: 150 mls/hr Documented by: Dextrose/Sodium Chloride (Dextrose 5%-1/2 Ns) 1,000 mls @ 125 mls/hr IV ASDIRECTED [facility] Last Admin: 03/12/21 00:45 Dose: 125 mls/hr Documented by: Pantoprazole Sodium (Pantoprazole 40 Mg Vial) 40 mg IV DAILY@0730 [facility] Last Admin: 03/12/21 07:56 Dose: 40 mg Documented by:
[2021-03-12] MEDS ORDERED: Enoxaparin 40 MG/0.4 ML Syringe SUBCUT SCH (21:00)
== END 2021-03-12 11:05 | disposition home or self-care (01) ==
LOC: JP.ED 18:07 → JP.MS 20:24 → INTOOBSV 20:24
PROVIDERS: ADMIT Internal Medicine; ATTEND Internal Medicine
DX: T38.3X1A Poisoning by insulin and oral hypoglycemic [antidiabetic] drugs, accidental (unintentional), initial encounter (principal); E11.649 Type 2 diabetes mellitus with hypoglycemia without coma; E16.0 Drug-induced hypoglycemia without coma; B94.8 Sequelae of other specified infectious and parasitic diseases; I10 Essential (primary) hypertension; Z79.4 Long term (current) use of insulin; Z79.899 Other long term (current) drug therapy
CPT/HCPCS: 36415; 80048; 80053; 81001; 82009; 82803; 82947; 83690; 85025; 86140; 99285; A9270; C9113; J1650; J7042; 96372; 96374; G0378

== ENCOUNTER 2022-03-24 09:13 | Emergency (ER) | payer BC ==
[2022-03-24] MEDS ORDERED: Sodium Chloride 0.9% 1,000 ML IV SCH ×2 (10:15→11:30)
[2022-03-24] MEDS ORDERED: Ketorolac 30 MG/ML SDV IVPUSH ONE (10:22)
[2022-03-24 10:49] LABS: ESTIMATED GFR 52 (>60)
[2022-03-24] MEDS ORDERED: HYDROmorphone 0.5 MG/0.5 ML Syringe IVPUSH ONE (11:36)
[2022-03-24] MEDS ORDERED: cefTRIAXone 1 GM in Sodium Chloride 0.9% 50 ML IV ONE (11:51)
== END 2022-03-24 13:04 | disposition home or self-care (01) ==
LOC: JP.ED 09:13
DX: N13.2 Hydronephrosis with renal and ureteral calculous obstruction (principal); N39.0 Urinary tract infection, site not specified; N41.0 Acute prostatitis; E86.0 Dehydration; E78.00 Pure hypercholesterolemia, unspecified; I10 Essential (primary) hypertension; K21.9 Gastro-esophageal reflux disease without esophagitis; E11.9 Type 2 diabetes mellitus without complications; Z86.16 Personal history of COVID-19; Z88.8 Allergy status to other drugs, medicaments and biological substances; Z87.891 Personal history of nicotine dependence
CPT/HCPCS: 36415; 74176; 80053; 81001; 85025; 86140; 87086; 96361; 96365; 96375; 99282; 99284-25; J0696; J1170; J1885; J7030

== ENCOUNTER 2024-02-26 03:53 | Emergency (ER) | payer MEDICARE, BC ==
[2024-02-26 04:10] LABS: BASOPHILS ABSOLUTE AUTO 0.06 K/uL (0.00-0.10); BASOPHILS PERCENT AUTO 0.8 % (0.1-1.3); EOSINOPHILS ABSOLUTE AUTO 0.24 K/uL (0.00-0.40); HEMOGLOBIN 13.8 g/dL (12.9-16.9); IMMATURE GRAN ABSOLUTE AUTO 0.05 K/uL (0.00-0.23); IMMATURE GRAN PERCENT AUTO 0.6 % (0.0-0.7); LYMPHOCYTES ABSOLUTE AUTO 1.75 K/uL (0.8-3.3); LYMPHOCYTES PERCENT AUTO 22.1 % (11.4-47.7); MEAN CORPUSCULAR HEMOGLOBIN 28.5 pg (31.6-35.5); MEAN CORPUSCULAR HGB CONC 34.5 g/dL (31.6-35.5); MEAN CORPUSCULAR VOLUME 82.5 fL (81.4-99.0); MONOCYTES ABSOLUTE AUTO 0.78 K/uL (0.20-0.90); MONOCYTES PERCENT AUTO 9.8 % (3.3-12.6); NEUTROPHILS ABSOLUTE AUTO 5.04 K/uL (1.0-7.6); NEUTROPHILS PERCENT AUTO 63.7 % (40.0-78.1); PLATELET COUNT,PLT 189 K/uL (130-375); RED BLOOD CELL COUNT 4.85 M/uL (4.14-5.76); WHITE BLOOD CELL COUNT,WBC 7.9 K/uL (3.2-11.0)
[2024-02-26 04:37] LABS: A/G RATIO 0.8 (1.2-2.2); ALANINE AMINOTRANSFERASE,ALT 37 U/L (12-78); ALBUMIN 3.3 g/dL (3.4-5.0); ALKALINE PHOSPHATASE 94 U/L (46-116); ANION GAP 14.3 mmol/L (5.0-14.0); ASPARTATE AMNIOTRANSFERASE,AST 29 U/L (15-37); BILIRUBIN TOTAL 0.2 mg/dL (0.2-1.0); BLOOD UREA NITROGEN,BUN 25 mg/dL (7-18); C-REACTIVE PROTEIN 1.04 mg/dL (<0.50); CALCIUM 8.9 mg/dL (8.5-10.1); CARBON DIOXIDE,CO2 25 mmol/L (21-32); CHLORIDE,CL 102 mmol/L (100-108); CREATININE 1.5 mg/dL (0.8-1.3); ESTIMATED GFR 52 mL/min (>60); GLUCOSE RANDOM 184 mg/dL (74-106); POTASSIUM,K 4.3 mmol/L (3.6-5.2); PROTEIN TOTAL,TP 7.3 g/dL (6.4-8.2); SODIUM,NA 137 mmol/L (140-148); TROPONIN I HIGH SENSITIVITY 7.3 pg/mL (<=60.3)
[2024-02-26] MEDS: Sodium Chloride 0.9% 1,000 ML IV SCH (05:57)
[2024-02-26] MEDS: Iopamidol 755 Mg/ML 100 ML Bottle IV SCH (06:26)
[2024-02-26] MEDS: Sodium Chloride 0.9% 100 ML IV SCH (06:26)
[2024-02-26] MEDS: Sodium Chloride 0.9% 10 ML Syringe FLUSH ONE (06:26)
== END 2024-02-26 07:30 | disposition other institution (70) ==
LOC: JP.ED 03:53
DX: I63.512 Cerebral infarction due to unspecified occlusion or stenosis of left middle cerebral artery (principal); I10 Essential (primary) hypertension; K21.9 Gastro-esophageal reflux disease without esophagitis; E78.00 Pure hypercholesterolemia, unspecified; E11.9 Type 2 diabetes mellitus without complications; Z88.8 Allergy status to other drugs, medicaments and biological substances; Z79.4 Long term (current) use of insulin; Z79.84 Long term (current) use of oral hypoglycemic drugs; Z79.899 Other long term (current) drug therapy; Z86.16 Personal history of COVID-19
CPT/HCPCS: 36415; 70450; 70496; 70498; 72125; 76377; 80053; 80307; 83605; 84484; 85025; 86140; 93005; 93010; 99285; J3490; J7030; Q9967

== ENCOUNTER 2024-03-07 03:39 | Emergency (ER) | payer MEDICARE, BC ==
[2024-03-07 03:59] LABS: BASE EXCESS ARTERIAL -9.9 mm/L; BICARBONATE,ARTERIAL 17.1 mmol/L (22.0-26.0); CARBOXYHEMOGLOBIN 0.6 % (0.0-1.6); METHEMOGLOBIN 0.9 %; O2 SATURATION ARTERIAL 94.9 % (95.0-98.0); OXYHEMOGLOBIN 93.5 %; PCO2 ARTERIAL 43.2 mmHg (35.0-42.0); TOTAL HEMOGLOBIN 13.6 g/dL (13.5-18.0)
[2024-03-07 04:02] LABS: BASOPHILS ABSOLUTE AUTO 0.04 K/uL (0.00-0.10); BASOPHILS PERCENT AUTO 0.5 % (0.1-1.3); EOSINOPHILS ABSOLUTE AUTO 0.15 K/uL (0.00-0.40); HEMATOCRIT 39.9 % (38.4-49.7); HEMOGLOBIN 13.5 g/dL (12.9-16.9); IMMATURE GRAN PERCENT AUTO 1.4 % (0.0-0.7); LYMPHOCYTES ABSOLUTE AUTO 1.87 K/uL (0.8-3.3); LYMPHOCYTES PERCENT AUTO 25.4 % (11.4-47.7); MEAN CORPUSCULAR HEMOGLOBIN 28.2 pg (31.6-35.5); MEAN CORPUSCULAR HGB CONC 33.8 g/dL (31.6-35.5); MEAN CORPUSCULAR VOLUME 83.3 fL (81.4-99.0); MONOCYTES ABSOLUTE AUTO 0.78 K/uL (0.20-0.90); MONOCYTES PERCENT AUTO 10.6 % (3.3-12.6); NEUTROPHILS ABSOLUTE AUTO 4.42 K/uL (1.0-7.6); NEUTROPHILS PERCENT AUTO 60.1 % (40.0-78.1); PLATELET COUNT,PLT 205 K/uL (130-375); RED BLOOD CELL COUNT 4.79 M/uL (4.14-5.76); WHITE BLOOD CELL COUNT,WBC 7.4 K/uL (3.2-11.0)
[2024-03-07 04:10] LABS: A/G RATIO 0.9 (1.2-2.2); ALANINE AMINOTRANSFERASE,ALT 36 U/L (12-78); ALBUMIN 3.4 g/dL (3.4-5.0); ALKALINE PHOSPHATASE 87 U/L (46-116); ASPARTATE AMNIOTRANSFERASE,AST 25 U/L (15-37); BILIRUBIN TOTAL 0.2 mg/dL (0.2-1.0); BLOOD UREA NITROGEN,BUN 30 mg/dL (7-18); CALCIUM 9.2 mg/dL (8.5-10.1); CARBON DIOXIDE,CO2 19 mmol/L (21-32); CHLORIDE,CL 102 mmol/L (100-108); CREATININE 2.1 mg/dL (0.8-1.3); EST CRCL DRUG DOSING (CG) 39.52 mL/min; ESTIMATED GFR 35 mL/min (>60); GLUCOSE RANDOM 226 mg/dL (74-106); PROTEIN TOTAL,TP 7.1 g/dL (6.4-8.2); SODIUM,NA 137 mmol/L (140-148)
[2024-03-07] MEDS: Sodium Chloride 0.9% 1,000 ML IV SCH (05:26)
[2024-03-07] MEDS: Albuterol 0.083% 2.5 MG/3 ML Neb Soln NEB ONE (05:27)
[2024-03-07] MEDS: LORazepam 2 MG/ML SDV IVPUSH ONE (05:49)
[2024-03-07] MEDS: levETIRAcetam 250 MG Tab PO ONE (05:51)
[2024-03-07] MEDS ORDERED: Ondansetron 4 MG/2 ML SDV ONE (07:15)
[2024-03-07] MEDS ORDERED: Rocuronium 50 MG/5 ML Vial ONE ×2 (07:29→07:37)
[2024-03-07] MEDS: Etomidate 2 MG/ML 10 ML SDV IVPUSH ONE ×2 (07:35→09:31)
[2024-03-07] MEDS: Rocuronium 50 MG/5 ML Vial IVPUSH ONE (07:38)
[2024-03-07] MEDS: EPINEPHrine 1:10,000 1 MG/10 ML Syringe IV ONE ×4 (07:45→07:55)
[2024-03-07] MEDS: Sodium Bicarbonate 8.4% 50 MEQ/50 ML Syringe IVPUSH ONE ×3 (08:04→08:06)
[2024-03-07 08:09] LABS: BASE EXCESS ARTERIAL -20.9 mm/L; BICARBONATE,ARTERIAL 15.1 mmol/L (22.0-26.0); CARBOXYHEMOGLOBIN 0.6 % (0.0-1.6); METHEMOGLOBIN 1.4 %; O2 SATURATION ARTERIAL 91.2 % (95.0-98.0); OXYHEMOGLOBIN 89.4 %; TOTAL HEMOGLOBIN 14.4 g/dL (13.5-18.0)
[2024-03-07 08:10] LABS: PCO2 ARTERIAL 83.2 mmHg (35.0-42.0)
[2024-03-07 08:27] LABS: CALCIUM 9.6 mg/dL (8.5-10.1); CREATININE 2.3 mg/dL (0.8-1.3); EST CRCL DRUG DOSING (CG) 36.08 mL/min; POTASSIUM,K 5.6 mmol/L (3.6-5.2); TROPONIN I HIGH SENSITIVITY 9.1 pg/mL (<=60.3)
[2024-03-07 08:28] LABS: ANION GAP 23.6 mmol/L (5.0-14.0)
[2024-03-07] MEDS: Albuterol 0.021% 0.63 MG/3 ML Neb Soln INH ONE (09:06)
[2024-03-07] MEDS ORDERED: Albuterol 0.021% 0.63 MG/3 ML Neb Soln ONE (09:06)
[2024-03-07] MEDS: Ondansetron 4 MG/2 ML SDV IVPUSH ONE (09:19)
[2024-03-07] MEDS: Midazolam 1 MG/ML 2 ML SDV ONE (09:20)
[2024-03-07] MEDS: Midazolam 1 MG/ML 2 ML SDV IVPUSH ONE (09:23)
== END 2024-03-07 09:30 | disposition other institution (70) ==
LOC: JP.ED 03:39
DX: F10.129 Alcohol abuse with intoxication, unspecified (principal); I48.91 Unspecified atrial fibrillation; I67.9 Cerebrovascular disease, unspecified; R09.02 Hypoxemia; I10 Essential (primary) hypertension; E78.00 Pure hypercholesterolemia, unspecified; E11.9 Type 2 diabetes mellitus without complications; K21.9 Gastro-esophageal reflux disease without esophagitis; Z86.16 Personal history of COVID-19; Z79.4 Long term (current) use of insulin; Z79.899 Other long term (current) drug therapy; Z79.01 Long term (current) use of anticoagulants; Z88.8 Allergy status to other drugs, medicaments and biological substances
CPT/HCPCS: 31500; 36415; 36600; 43752; 51702; 70450; 71045; 71045-26; 80048; 80053; 80307; 82803; 83605; 84484; 85025; 92950; 93005; 94640; 96361; 96374; 96375; 99285-25; A9270-GY; J0171; J2060; J2250; J2405; J3490; J7030